=== PATIENT | male | born 1970 | race Caucasian/White ===

== ENCOUNTER → 2021-07-15 | Outpatient (CLI) | payer BC ==
--- NOTE | 2021-07-15 13:13 | MR ---
EXAMINATION TYPE: MR knee LT wo con DATE OF EXAM: 07/15/2021 COMPARISON: None HISTORY: Inner left knee pain, pain behind knee, painful kneecap, and swelling for 4 months due to tw isting injury TECHNIQUE: Multiplanar, multisequence imaging of the left knee is performed without IV contrast. FINDINGS: MEDIAL MENISCUS: Complex tear posterior meniscus. Anterior horn is intact. LATERAL MENISCUS: Anterior and posterior horns are intact without tear. CRUCIATE LIGAMENTS: Increased signal within the ACL may reflect a strain. No evidence for tear. PCL i s intact. COLLATERAL LIGAMENTS: The medial collateral ligament and lateral collateral ligament complex are inta ct and unremarkable. EXTENSOR MECHANISM: Visualized quadriceps and patellar tendons are intact. EFFUSION: No significant suprapatellar joint effusion. POPLITEAL CYST: No popliteal/robbins cyst. TRICOMPARTMENT SPACES: Moderate narrowing medial tibiofemoral joint space and patellofemoral joint sp mirian. Spur formation involving the margins of the tibial plateaus and femoral condyles. CARTILAGE: Thinning and irregularity of the patellar cartilage compatible with chondromalacia patella . BONE MARROW SIGNAL: No focal abnormal marrow signal is appreciated. OTHER: Loose body in the region of Hoffa's fat pad measuring 1.4 cm. IMPRESSION: 1. Complex tear posterior horn medial meniscus. 2. Probable strain involving the anterior cruciate ligament without evidence for tear. 3. Chondromalacia patellae and changes of osteoarthritis.
== END | disposition home or self-care (01) ==
LOC: RADMRIMAIN 11:45
PROVIDERS: ATTEND Orthopaedic Surgery
DX: S83.232A Complex tear of medial meniscus, current injury, left knee, initial encounter (principal); M22.42 Chondromalacia patellae, left knee; M17.12 Unilateral primary osteoarthritis, left knee; X58.XXXA Exposure to other specified factors, initial encounter

== ENCOUNTER → 2021-08-13 | Outpatient (CLI) | payer BC ==
[2021-08-13 12:03] LABS: Basophils # (A) 0.1 k/uL (0-0.2); Basophils % (A) 1 %; Eosinophils # (A) 0.2 k/uL (0-0.7); Eosinophils % (A) 3 %; HCT 47.2 % (39.0-53.0); HGB 15.7 gm/dL (13.0-17.5); Lymphocytes # (A) 2.4 k/uL (1.0-4.8); Lymphocytes % (A) 29 %; MCH 28.8 pg (25.0-35.0); MCHC 33.3 g/dL (31.0-37.0); MCV 86.7 fL (80.0-100.0); Monocytes # (A) 0.5 k/uL (0-1.0); Monocytes % (A) 6 %; Neutrophils # (A) 4.9 k/uL (1.3-7.7); Neutrophils % (A) 59 %; Platelet Count 300 k/uL (150-450); RBC 5.45 m/uL (4.30-5.90); RDW 12.8 % (11.5-15.5); WBC 8.3 k/uL (3.8-10.6)
[2021-08-13 12:13] LABS: Potassium 4.4 mmol/L (3.5-5.1)
== END | disposition home or self-care (01) ==
LOC: LABPAT 11:20
PROVIDERS: ATTEND Orthopaedic Surgery
DX: Z01.812 Encounter for preprocedural laboratory examination (principal); M23.92 Unspecified internal derangement of left knee
CPT/HCPCS: 36415; 80051; 85025; 93005

== ENCOUNTER 2021-08-19 08:47 | Day surgery (SDC) | payer BC ==
--- NOTE | 2021-08-18 15:59 | HP ---
HISTORY AND PHYSICAL REASON FOR ADMISSION: Surgery scheduled 08/19/2021 HISTORY OF PRESENT ILLNESS: Krystian Salazar is a 51-year-old gentleman seen with progressive left knee pain. We discussed options for treatment. He elected to proceed with left knee arthroscopy. Consent was obtained. PAST MEDICAL HISTORY: Noncontributory. PAST SURGICAL HISTORY: Noncontributory. MEDICATIONS: Adderall and Meloxicam. ALLERGIES: PENICILLIN. SOCIAL HISTORY: Denies tobacco use. PHYSICAL EVALUATION OF THE LEFT KNEE: Range of motion is -2/3-90. Mild effusion. Tenderness medial joint line. Positive medial Ki's. Ligaments stable. Hip rotation without pain. Distal neurovascular exam intact. RADIOGRAPHS: Left knee radiographs reveal osteoarthritic changes. MRI left knee revealed a complex medial meniscal tear. IMPRESSION: Internal derangement left knee medial meniscal tear. PLAN: Left knee arthroscopy with partial meniscectomy and debridement. Surgery scheduled for 08/19/2021. MMODL / IJN: [id number] /
[~2021-08-19 08:47] MED LIST: DEXAMETHASONE SOD PHOSPHATE 4 MG/ML 1 ML VIAL IV ONE; LACTATED RINGERS 1,000 ML IV SCH; LIDOCAINE 1% (10MG/ML) FOR IV START INTRADERMA PRN; MIDAZOLAM 2 MG/2 ML VIAL IV PRN; ONDANSETRON 4 MG/2 ML VIAL IVP PRN; ceFAZolin 3 GM in SODIUM CHLORIDE 0.9% 100 ML IVPB PRN
[2021-08-19] MEDS ORDERED: fentaNYL (PF) 50 MCG/ML 2 ML AMP ONE (10:35)
[2021-08-19] MEDS ORDERED: LIDOCAINE 1% INJ 10MG/ML (20 ML MDV) ONE (10:35)
[2021-08-19] MEDS ORDERED: MIDAZOLAM 2 MG/2 ML VIAL ONE (10:35)
[2021-08-19] MEDS ORDERED: SUCCINYLCHOLINE CHLORIDE VIAL 200 MG/10 ML VIAL IV ONE (10:35)
[2021-08-19] MEDS ORDERED: PROPOFOL 10 MG/ML 20 ML VIAL IV ONE (10:35)
[2021-08-19] MEDS ORDERED: BUPIVACAINE (PF) 0.25% 30 ML VIAL SQ ONE (10:36)
--- NOTE | 2021-08-19 11:31 | P.OP ---
Date of Procedure: 08/19/21 Preoperative Diagnosis: Internal derangement left knee Postoperative Diagnosis: 1. Tear medial meniscus left knee 2. Tear lateral meniscus left knee 3. Grade 4 chondromalacia medial femoral condyle left knee 4. Grade 2 chondromalacia lateral femoral condyle left knee 5. Grade 2 chondromalacia patellofemoral joint left knee 6. Reactive synovitis medial, lateral and suprapatellar compartments left knee Procedure(s) Performed: 1. Arthroscopic partial medial and lateral meniscectomy left knee 2. Arthroscopic microfracture medial femoral condyle left knee 3. Arthroscopic chondroplasty medial femoral condyle left knee 4. Arthroscopic chondroplasty lateral femoral condyle left knee 5. Arthroscopic partial synovectomy medial, lateral and suprapatellar compartments left knee Anesthesia: EDAA, local Surgeon: Lucas Olmedo Estimated Blood Loss (ml): 7 Pathology: none sent Condition: stable Disposition: PACU Indications for Procedure: 51-year-old patient seen with progressive left knee pain. After treatment options were discussed, he elected to proceed with arthroscopy. Operative Findings: See description of procedure Description of Procedure: Patient was taken to the operative suite. Patient underwent a general anesthetic by the department of anesthesia. Patient was given preoperative antibiotics. The left lower extremity was placed in a well-padded arthroscopic leg love. The left leg was prepped and draped in the normal sterile orthopedic fashion. A lateral parapatellar and suprapatellar incision was made. Trochars were inserted. Arthroscopy was initiated. Suprapatellar pouch revealed diffuse thick reactive synovitis. The patellofemoral joint appeared to articulate congruently. There was grade 2 chondromalacia of the patella with no significant osteochondral tear present. The scope was guided into the medial gutter. No loose bodies or plica were identified. The scope was then guided into the medial compartment. A medial parapatellar incision was made. Trocar inserted followed by probe. There was a complex tear involving the posterior horn of the medial meniscus. There were grade 3/4 chondromalacia changes of the medial femoral condyle with some large osteochondral flap tears present. There was thick reactive synovitis anteriorly. I performed a partial medial meniscectomy getting down to stable meniscal tissue. I performed a chondroplasty of the medial femoral condyle getting down to stable osteochondral tissue. I performed a partial synovectomy decompressing the reactive synovitis. There was an area of exposed bone involving the medial femoral condyle weightbearing surface measuring 1 x 1.5 cm. I performed a microfracture to area penetrating the bone with resultant bleeding at the microfracture site. The residual meniscus was probed and found to be stable. The residual osteochondral surface was probed and found to be stable. There was good decompression of the synovitis. Scope and probe were then guided into the intercondylar notch. Cru ciates were identified, probed and found to be stable. The scope and probe were then guided into lateral compartment. The lateral meniscus revealed a radial tear posterior horn area. There were grade 2 chondromalacia changes of the lateral femoral condyle with some osteochondral flap tear centrally. There was thick reactive synovitis anteriorly. I performed a partial lateral meniscectomy getting down to stable meniscal tissue. I performed a chondroplasty of the lateral femoral condyle getting down to stable osteochondral tissue. I performed a partial synovectomy decompressing the reactive synovitis. The residual meniscus was stable. The residual osteochondral surface was stable. There was good decompression of the synovitis. The scope was in guided back into the suprapatellar compartment. I introduced a motorized shaver into the suprapatellar compartment. I debrided some piecemeal fragments of meniscus I encountered. I performed a partial synovectomy. The shaver was removed. There was good decompression of synovitis. I took one more look on the entire knee, no residual debris. Instruments were now removed from the joint. The joint was infiltrated with .25% Marcaine. Steri-Strips were applied to the portal sites. Sterile dressings were applied. The patient was placed into a NORIS hose. No tourniquet was utilized. The patient was awakened, transferred to a bed and taken to recovery stable satisfactory condition.
[2021-08-19] MEDS: HYDROmorphone 0.5 MG/0.5 ML SYRINGE IVP PRN ×2 (11:37→11:52)
[2021-08-19] MEDS ORDERED: KETOROLAC 15 MG/ML 1 ML VIAL IVP ONE (11:41)
[2021-08-19 11:48] VITALS: TEMP 96.8
[2021-08-19 11:51] VITALS: RESP 16
[2021-08-19 12:36] VITALS: BP 133/78; PULSE 78
[2021-08-19] MEDS ORDERED: HYDROcodone/APAP 5-325MG 1 EACH TAB ONE (12:42)
[2021-08-19] MEDS ORDERED: HYDROcodone/APAP 5-325MG 1 EACH TAB PO ONE (12:43)
== END 2021-08-19 13:50 | disposition home or self-care (01) ==
LOC: OR 08:47
PROVIDERS: ATTEND Orthopaedic Surgery
DX: S83.282A Other tear of lateral meniscus, current injury, left knee, initial encounter (principal); M94.262 Chondromalacia, left knee; M25.462 Effusion, left knee
CPT/HCPCS: 29880; 29883; J2250; J0330; J1100; J0690; J2405; J2001; J3010; J1885; J2704; J1170